=== PATIENT | male | born 1975 | race Caucasian/White ===

== ENCOUNTER → 2020-05-07 | Outpatient (CLI) | payer OTHER ==
--- NOTE | 2020-05-07 16:39 | REPVR ---
PROCEDURE INFORMATION: Exam: MR Lumbar Spine Without Contrast. Exam date and time: 05/07/2020 4:03 PM Age: 45 years old Clinical indication: Low back pain; Prior surgery; Surgery date: 6+ months; Surgery type: Fusion; Patient HX: Lbp; Additional info: Radiculopathy w/ lbp TECHNIQUE: Imaging protocol: Multiplanar magnetic resonance images of the lumbar spine without intravenous contrast. COMPARISON: No relevant prior studies available. FINDINGS: Vertebrae: No anterior wedging deformity is seen. Marrow edema is seen at the L1 and L2 levels, which may be degenerative or compressive induced. No destructive osseous lesions are seen. There are no findings of discitis-osteomyelitis. Spinal epidural space: There is no epidural mass or hemorrhage identified. Spinal cord: The distal spinal cord and conus medullaris are normal in signal and morphology. The cauda equina nerve roots are normally distributed within the thecal sac, with no clumping or adhesions. L1-L2: Retrolisthesis. Spondylitic disc bulge causes moderate to severe right neural foraminal stenosis. L2-L3: Left eccentric spondylitic disc bulge and facet hypertrophy with minimal central canal stenosis, moderate left and mild right neural foraminal stenosis. L3-L4: Mild left neural foraminal stenosis. L4-L5: Moderate bilateral neural foraminal stenosis, greater on the left. L5-S1: Fused anterolisthesis at L5-S1. Dorsal decompression is noted at L5-S1. Susceptibility artifact related to the L5-S1 dorsal fusion diminishes anatomic detail at this level. The neural foramina appear patent. IMPRESSION: 1. L5-S1 dorsal decompression and fusion, with no acute complication evident. 2. Multilevel lumbar spondylosis and facet arthropathy, with no severe central canal stenosis. Multilevel neural foraminal stenosis, as above. Electronically signed by: Valeria Delgado On 05/07/2020 16:39:36 PM
== END ==
LOC: M RAD 14:47
PROVIDERS: ATTEND Physician Assistant Medical
DX: M43.27 Fusion of spine, lumbosacral region (principal); M51.26 Other intervertebral disc displacement, lumbar region

== ENCOUNTER → 2020-08-25 | Outpatient (CLI) | payer OTHER | LOC: M PLALAB 11:04 | PROVIDERS: ATTEND Psychiatry & Neurology Neurology | DX: M54.5 Low back pain (principal); G62.9 Polyneuropathy, unspecified ==

== ENCOUNTER → 2020-08-30 | Outpatient (CLI) | payer OTHER ==
[2020-08-30 15:15] LABS: FOLATE > 24.0 NG/ML; FREE T4 1.26 NG/DL (0.76-1.46); TOTAL PROTEIN 7.5 GM/DL (6.4-8.2); VITAMIN B12 LEVEL 659 PG/ML
[2020-08-30 16:37] LABS: HEMOGLOBIN A1c 5.6 %
[2020-08-31 10:49] LABS: ALBUMIN 4.71 GM/DL (3.29-5.55); ALBUMIN % 62.8 % (55.8-66.1); ALPHA-2-GLOBULINS 0.86 GM/DL (0.42-0.99); ALPHA-2-GLOBULINS % 11.4 % (7.1-11.8); BETA-1-GLOBULINS 0.47 GM/DL (0.28-0.60); BETA-1-GLOBULINS % 6.2 % (4.7-7.2); BETA-2-GLOBULINS 0.32 GM/DL (0.19-0.55); BETA-2-GLOBULINS % 4.3 % (3.2-6.5); GAMMA GLOBULIN % 11.3 % (11.1-18.8)
[2020-08-31 10:50] LABS: GAMMA GLOBULINS 0.85 GM/DL (0.65-1.58)
== END ==
LOC: M PLALAB 11:48
PROVIDERS: ATTEND Psychiatry & Neurology Neurology
DX: G62.9 Polyneuropathy, unspecified (principal); M54.5 Low back pain; G89.29 Other chronic pain

== ENCOUNTER → 2021-12-21 | Outpatient (CLI) | payer OTHER | LOC: M SOG 10:32 | PROVIDERS: ATTEND Orthopaedic Surgery Adult Reconstructive Orthopaedic Surgery | DX: M25.559 Pain in unspecified hip (principal) ==

== ENCOUNTER 2022-11-28 17:06 | Emergency (ER) | payer OTHER ==
[~2022-11-28] VITALS: Ht 182.9 cm; Wt 131.1 kg
[2022-11-28 17:53] LABS: BASO # 0.1 10^3/uL (0.0-0.2); EOS # 0.2 10^3/uL (0.0-0.5); EOS % 3.4 % (0.0-3.0); HEMATOCRIT 42.7 % (42.0-52.0); LYMPH # 1.9 10^3/uL (1.5-5.0); LYMPH % 29.9 % (24.0-44.0); MEAN CORPUSCULAR HEMOGLOBIN 31.8 pg (27.0-33.0); MEAN CORPUSCULAR HGB CONC 32.8 g/dl (32.0-36.5); MONO # 0.7 10^3/uL (0.0-0.8); MONO % 11.3 % (2.0-8.0); NEUTROPHILS # 3.4 10^3/uL (1.5-8.5); NEUTROPHILS % 54.1 % (36.0-66.0); PLATELET COUNT, AUTOMATED 279 10^3/uL (150-450); WHITE BLOOD COUNT 6.2 10^3/uL (4.0-10.0)
[2022-11-28 17:57] LABS: INR 1.09; PROTHROMBIN TIME 14.3 SECONDS (12.5-14.5)
[2022-11-28 17:58] LABS: PARTIAL THROMBOPLASTIN TIME 24.7 SECONDS (24.8-34.2)
[2022-11-28 18:03] LABS: CK-MB VALUE MASS 2.1 NG/ML (<3.6)
[2022-11-28 18:04] LABS: LIPASE 28 U/L (12-53)
[2022-11-28 18:06] LABS: ALBUMIN 3.8 G/DL (3.2-5.2); ALKALINE PHOSPHATASE 99 U/L (46-116); ALT/SGPT 29 U/L (7.0-40); AST/SGOT 19 U/L (<34); BILIRUBIN,DIRECT 0.2 MG/DL (<0.4); BILIRUBIN,TOTAL 0.6 MG/DL (0.3-1.2); BLOOD UREA NITROGEN 16 MG/DL (9-23); CALCIUM LEVEL 9.3 MG/DL (8.5-10.1); CARBON DIOXIDE LEVEL 31 MMOL/L (20-31); CHLORIDE LEVEL 108 MMOL/L (98-107); CREATININE FOR GFR 1.28 MG/DL (0.70-1.30); GLOMERULAR FILTRATION RATE > 60.0 (>60); GLUCOSE, FASTING 65 MG/DL (60-100); MAGNESIUM LEVEL 1.7 MG/DL (1.8-2.4); POTASSIUM SERUM 4.1 MMOL/L (3.5-5.1); SODIUM LEVEL 143 MMOL/L (136-145); TOTAL PROTEIN 6.4 G/DL (5.7-8.2)
[2022-11-28 18:07] LABS: THYROID STIMULATING HORMONE 4.357 uIU/ML (0.55-4.78)
[2022-11-28 18:09] LABS: CPK CREATINE PHOSPHOKINASE 178 U/L (46-171); MB/CK RELATIVE INDEX 1.17 (< OR =4)
[2022-11-28 18:35] LABS: RSV AMPLIFICATION NEGATIVE (NEGATIVE)
[2022-11-28 20:40] VITALS: BP 120/74
== END 2022-11-28 20:42 | disposition home or self-care (01) ==
LOC: M ED 17:06
DX: I47.20 Ventricular tachycardia, unspecified (principal); Z95.811 Presence of heart assist device; I10 Essential (primary) hypertension; E78.5 Hyperlipidemia, unspecified; I25.10 Atherosclerotic heart disease of native coronary artery without angina pectoris; Z95.5 Presence of coronary angioplasty implant and graft; Z88.8 Allergy status to other drugs, medicaments and biological substances

== ENCOUNTER 2023-06-01 15:09 | Emergency (ER) | payer OTHER ==
[~2023-06-01] VITALS: Ht 182.9 cm; Wt 136.4 kg
[2023-06-01 15:10] VITALS: BP 132/73; TEMP 97.8; O2SAT 97
[2023-06-01] MEDS ORDERED: ATOR80TA59 (15:22)
[2023-06-01] MEDS ORDERED: ENTR1TAB PO (15:22)
[2023-06-01] MEDS ORDERED: ELIQ5TAB PO (15:22)
[2023-06-01] MEDS ORDERED: CARV6.25 PO (15:22)
[2023-06-01] MEDS ORDERED: LEVO50TA5 PO (15:22)
[2023-06-01] MEDS ORDERED: CLOP75TA2 PO (15:22)
[2023-06-01] MEDS ORDERED: JARD1TAB3 PO (15:22)
== END 2023-06-01 19:10 | disposition left against medical advice (07) ==
LOC: M ED 15:09
DX: Z53.21 Procedure and treatment not carried out due to patient leaving prior to being seen by health care provider (principal)

== ENCOUNTER 2024-07-01 17:06 | Emergency (ER) | payer OTHER ==
[~2024-07-01] VITALS: Ht 182.9 cm; Wt 137.1 kg
[~2024-07-01 17:06] MED LIST: ATOR80TA59 PO; CARV6.25 PO; CLOP75TA2 PO; ELIQ5TAB PO; ENTR1TAB PO; JARD1TAB3 PO; LEVO50TA5 PO
[2024-07-01] MEDS ORDERED: MULT18TA PO ×2 (17:30)
[2024-07-01] MEDS ORDERED: AMIO100T4 PO (17:30)
[2024-07-01] MEDS ORDERED: LOPR1TAB7 PO (17:30)
[2024-07-01 19:58] LABS: BASO % 0.6 % (0.0-1.0); EOS # 0.1 10^3/uL (0.0-0.5); EOS % 1.1 % (0.0-3.0); HEMATOCRIT 50.9 % (42.0-52.0); HEMOGLOBIN 17.3 g/dl (13.5-17.5); LYMPH # 1.9 10^3/uL (1.5-5.0); LYMPH % 27.5 % (24.0-44.0); MEAN CORPUSCULAR HEMOGLOBIN 32.3 pg (27.0-33.0); MEAN CORPUSCULAR VOLUME 95.1 fl (80.0-96.0); MONO # 0.6 10^3/uL (0.0-0.8); MONO % 9.1 % (2.0-8.0); NEUTROPHILS # 4.3 10^3/uL (1.5-8.5); NEUTROPHILS % 61.4 % (36.0-66.0); PLATELET COUNT, AUTOMATED 224 10^3/uL (150-450); RED BLOOD COUNT 5.35 10^6/uL (4.30-6.10)
[2024-07-01 20:31] LABS: CK-MB VALUE MASS 1.5 NG/ML (<3.6)
[2024-07-01 20:33] LABS: CALCIUM LEVEL 10.1 MG/DL (8.5-10.1); CREATININE FOR GFR 1.37 MG/DL (0.70-1.30); GLOMERULAR FILTRATION RATE 59.3 (>60); POTASSIUM SERUM 4.4 MMOL/L (3.5-5.1)
[2024-07-01 20:34] LABS: MB/CK RELATIVE INDEX 0.69 (< OR =4)
[2024-07-02 04:32] LABS: CK-MB VALUE MASS 1.5 NG/ML (<3.6)
[2024-07-02 04:34] LABS: MB/CK RELATIVE INDEX 0.94 (< OR =4)
[2024-07-02 04:45] VITALS: BP 114/67; TEMP 96.7; O2SAT 97
== END 2024-07-02 04:58 | disposition home or self-care (01) ==
LOC: M ED 17:06
DX: S29.012A Strain of muscle and tendon of back wall of thorax, initial encounter (principal); X58.XXXA Exposure to other specified factors, initial encounter; Y92.9 Unspecified place or not applicable; Y93.9 Activity, unspecified; Y99.9 Unspecified external cause status; I25.10 Atherosclerotic heart disease of native coronary artery without angina pectoris; M19.90 Unspecified osteoarthritis, unspecified site; Z79.01 Long term (current) use of anticoagulants; Z79.899 Other long term (current) drug therapy; Z88.8 Allergy status to other drugs, medicaments and biological substances

== ENCOUNTER 2024-07-25 15:35 | Emergency (ER) | payer OTHER ==
[~2024-07-25] VITALS: Ht 182.9 cm; Wt 137.6 kg
[~2024-07-25 15:35] MED LIST changes: +AMIO100T4 PO; +LOPR1TAB7 PO; +MULT18TA PO
[2024-07-25 15:40] VITALS: BP 130/82; TEMP 97.2; O2SAT 97
[2024-07-25 17:47] LABS: BASO % 0.4 % (0.0-1.0); EOS # 0.1 10^3/uL (0.0-0.5); HEMATOCRIT 46.2 % (42.0-52.0); HEMOGLOBIN 15.3 g/dl (13.5-17.5); LYMPH # 1.8 10^3/uL (1.5-5.0); LYMPH % 25.1 % (24.0-44.0); MEAN CORPUSCULAR HEMOGLOBIN 32.5 pg (27.0-33.0); MEAN CORPUSCULAR HGB CONC 33.1 g/dl (32.0-36.5); MEAN CORPUSCULAR VOLUME 98.1 fl (80.0-96.0); MONO # 0.8 10^3/uL (0.0-0.8); MONO % 11.9 % (2.0-8.0); NEUTROPHILS # 4.3 10^3/uL (1.5-8.5); NEUTROPHILS % 61.5 % (36.0-66.0); PLATELET COUNT, AUTOMATED 205 10^3/uL (150-450); RED BLOOD COUNT 4.71 10^6/uL (4.30-6.10); WHITE BLOOD COUNT 7.1 10^3/uL (4.0-10.0)
[2024-07-25 18:00] LABS: INR 0.98; PARTIAL THROMBOPLASTIN TIME 27.4 SECONDS (24.8-34.2); PROTHROMBIN TIME 13.3 SECONDS (12.5-14.5)
== END 2024-07-25 18:04 | disposition home or self-care (01) ==
LOC: M ED 15:35
DX: S30.0XXA Contusion of lower back and pelvis, initial encounter (principal); W10.8XXA Fall (on) (from) other stairs and steps, initial encounter; Y92.009 Unspecified place in unspecified non-institutional (private) residence as the place of occurrence of the external cause; Y93.9 Activity, unspecified; Y99.9 Unspecified external cause status; Z79.01 Long term (current) use of anticoagulants; Z79.899 Other long term (current) drug therapy; Z88.8 Allergy status to other drugs, medicaments and biological substances